=== PATIENT | female | born 1935 | race American Indian/Alaskan Native ===

== ENCOUNTER 2016-12-16 12:35 | Outpatient (CLI) | payer MEDICARE | END 2016-12-16 12:36 | disposition home or self-care (01) | LOC: MAMMO 12:35 | PROVIDERS: ATTEND Internal Medicine | DX: S72.009A Fracture of unspecified part of neck of unspecified femur, initial encounter for closed fracture (principal); X58.XXXA Exposure to other specified factors, initial encounter; Y93.89 Activity, other specified; Y92.89 Other specified places as the place of occurrence of the external cause; Y99.8 Other external cause status | CPT/HCPCS: 77080 ==